=== PATIENT | male | born 1975 | race Caucasian/White ===

== ENCOUNTER 2021-02-09 08:56 | Inpatient (IN) | payer MEDICAID ==
[~2021-02-09] VITALS: Ht 160 cm; Wt 68.0 kg
[2021-02-09] MEDS ORDERED: MAGNESIUM/ALUMINUM HYDROXIDE/SIMETHICONE 30ML UDC PO ONE (09:45)
[2021-02-09] MEDS ORDERED: VISCOUS LIDOCAINE 2% 15 ML UDC PO ONE (09:45)
[2021-02-09 10:28] LABS: BASOPHILS % 0.6 % (0.0-2.0); EOSINOPHILS % 0.9 % (0.0-5.0); HEMATOCRIT. 48.9 % (42.0-52.0); HEMOGLOBIN. 16.7 g/dL (14.0-18.0); LYMPHOCYTES % 46.2 % (20.0-50.0); MEAN CORPUSCULAR HEMOGLOBIN 28.5 pg (28.0-32.0); MEAN CORPUSCULAR VOLUME 83.4 fL (80.0-94.0); MONOCYTES % 6.4 % (2.0-8.0); NEUTROPHILS % 45.9 % (40.0-76.0); PLATELET 321 x1000/uL (130-400); RED BLOOD CELL COUNT 5.87 mill/uL (4.7-6.1); RED CELL DISTRIBUTION WIDTH 13.3 % (11.6-14.6)
[2021-02-09 10:34] LABS: CHLORIDE 106 mEq/L (98-107)
[2021-02-09 10:37] LABS: ETHANOL BLOOD 254 mg/dL
[2021-02-09 10:39] LABS: PROTHROMBIN TIME 10.9 sec (9.6-11.0)
[2021-02-09] MEDS ORDERED: IOHEXOL-300 100 ML BOTTLE ONE (11:31)
[2021-02-09] MEDS ORDERED: MORPHINE SULFATE 4 MG/ML CPJ (NOT FOR IM USE) IV SCH (12:15)
[2021-02-09] MEDS ORDERED: SODIUM CHLORIDE 0.9% 1,000 ML IV ONE (12:30)
[2021-02-09] MEDS ORDERED: ONDANSETRON HCL 4MG/2ML INJ IV ONE (13:00)
[2021-02-09] MEDS ORDERED: CLONIDINE 0.1MG TABLET PO PRN (16:45)
[2021-02-09] MEDS ORDERED: DIPHENHYDRAMINE 50MG/ML VIAL IV PRN (16:45)
[2021-02-09] MEDS ORDERED: FOLIC ACID 1 MG, THIAMINE HCL 100 MG, MVI, ADULT NO.1 10 ML in DEXTROSE 5% WATER 1,000 ML IV ONE (16:45)
[2021-02-09] MEDS ORDERED: ONDANSETRON HCL 4MG/2ML INJ IV PRN (16:45)
[2021-02-09 20:00] VITALS: BP 148/83
[2021-02-09] MEDS ORDERED: DEXTROSE 50% WATER 50ML SYRINGE IV PRN (20:15)
[2021-02-09] MEDS: BLOOD SUGAR DIAGNOSTIC STRIP TEST SCH (20:58)
[2021-02-09] MEDS: INSULIN LISPRO 100 UNITS/ML SUBCUT SCH (21:00)
[2021-02-09] MEDS ORDERED: LORAZEPAM 2MG/ML CPJ IM PRN (22:45)
[2021-02-10] VITALS: BP 145/83
[2021-02-10 04:00] VITALS: BP 148/99
[2021-02-10] MEDS: SODIUM CHLORIDE 0.9% 1,000 ML IV SCH ×2 (05:13→19:32)
[2021-02-10] MEDS: CHLORDIAZEPOXIDE 25MG CAPSULE PO SCH ×3 (06:38→21:13)
[2021-02-10] MEDS: BLOOD SUGAR DIAGNOSTIC STRIP TEST SCH ×4 (06:38→21:12)
[2021-02-10] MEDS: INSULIN LISPRO 100 UNITS/ML SUBCUT SCH ×4 (06:50→21:00)
[2021-02-10 06:55] LABS: BASOPHILS % 0.3 % (0.0-2.0); EOSINOPHILS % 0.9 % (0.0-5.0); HEMATOCRIT. 44.5 % (42.0-52.0); LYMPHOCYTES % 28.9 % (20.0-50.0); MEAN CORPUSCULAR HEMOGLOBIN 28.4 pg (28.0-32.0); MEAN CORPUSCULAR VOLUME 84.2 fL (80.0-94.0); MONOCYTES % 9.2 % (2.0-8.0); NEUTROPHILS % 60.7 % (40.0-76.0); PLATELET 256 x1000/uL (130-400); RED BLOOD CELL COUNT 5.28 mill/uL (4.7-6.1); RED CELL DISTRIBUTION WIDTH 12.8 % (11.6-14.6)
[2021-02-10 07:06] LABS: CHLORIDE 105 mEq/L (98-107)
[2021-02-10 07:21] LABS: LDL CHOLESTEROL 88 mg/dL (5-100)
[2021-02-10 07:22] LABS: HDL CHOLESTEROL 39 mg/dL (40-59)
[2021-02-10 08:00] VITALS: BP 144/88
[2021-02-10] MEDS: MULTIVITAMINS,THER W-MINERALS TABLET PO SCH (08:49)
[2021-02-10] MEDS: PANTOPRAZOLE SODIUM 40 MG/VIAL IV SCH (08:49)
[2021-02-10] MEDS: FOLIC ACID 1MG TABLET PO SCH (08:49)
[2021-02-10] MEDS: THIAMINE HCL 100MG TABLET PO SCH (08:49)
[2021-02-10 10:29] LABS: TOTAL IRON BINDING CAPACITY 337 ug/dL (250-450)
[2021-02-10 11:00] LABS: VITAMIN B12 SERUM 421 pg/mL (211-911)
[2021-02-10 11:08] LABS: FOLIC ACID (FOLATE) SERUM > 20.00 ng/mL (>5.38)
[2021-02-10 12:00] VITALS: BP 151/89
[2021-02-10 12:12] LABS: FERRITIN 198 ng/mL (22-322)
[2021-02-10 16:00] VITALS: BP 149/90
[2021-02-10 20:00] VITALS: BP 147/81
[2021-02-10] MEDS ORDERED: ATORVASTATIN CALCIUM 40MG TABLET PO SCH (21:00)
[2021-02-11] VITALS: BP 144/74
[2021-02-11 04:00] VITALS: BP 120/86
[2021-02-11] MEDS: CHLORDIAZEPOXIDE 25MG CAPSULE PO SCH ×2 (06:25→14:50)
[2021-02-11] MEDS: BLOOD SUGAR DIAGNOSTIC STRIP TEST SCH ×2 (06:25→12:44)
[2021-02-11] MEDS: INSULIN LISPRO 100 UNITS/ML SUBCUT SCH ×2 (06:52→12:44)
[2021-02-11 08:00] VITALS: BP 126/77
[2021-02-11] MEDS: FOLIC ACID 1MG TABLET PO SCH (09:37)
[2021-02-11] MEDS: THIAMINE HCL 100MG TABLET PO SCH (09:37)
[2021-02-11] MEDS: MULTIVITAMINS,THER W-MINERALS TABLET PO SCH (09:37)
[2021-02-11] MEDS: PANTOPRAZOLE SODIUM 40 MG/VIAL IV SCH (09:37)
[2021-02-11] MEDS: SODIUM CHLORIDE 0.9% 1,000 ML IV SCH (09:41)
[2021-02-11 12:00] VITALS: BP 133/85
[2021-02-11] MEDS ORDERED: THIA100T88 MT (12:57)
[2021-02-11] MEDS ORDERED: LACT10SO7 MT (12:57)
[2021-02-11] MEDS ORDERED: ATOR40TA70 MT (12:57)
[2021-02-11] MEDS ORDERED: FAMO20TA8 MT (12:57)
[2021-02-11] MEDS ORDERED: L25 MT (12:57)
[2021-02-11] MEDS ORDERED: FOLI-43 MT (12:57)
[2021-02-11] MEDS ORDERED: MULT-230 MT (12:57)
[2021-02-11 14:36] VITALS: BP 133/85
[2021-02-11] MEDS ORDERED: LACTULOSE 20G/30ML UDC PO SCH (21:00)
== END 2021-02-11 15:45 | disposition home or self-care (01) | DRG 816 ==
LOC: ER 08:56 → 6EST 14:01 → ENRESERV 17:25 → CANRESERV 17:25 → ENRESERV 18:06
PROVIDERS: ADMIT Internal Medicine; ATTEND Internal Medicine
DX: T51.0X1A Toxic effect of ethanol, accidental (unintentional), initial encounter (principal); E87.2 Acidosis; K92.2 Gastrointestinal hemorrhage, unspecified; E78.1 Pure hyperglyceridemia; Y90.8 Blood alcohol level of 240 mg/100 ml or more; F10.129 Alcohol abuse with intoxication, unspecified; F10.139 Alcohol abuse with withdrawal, unspecified; Z71.41 Alcohol abuse counseling and surveillance of alcoholic; Y92.89 Other specified places as the place of occurrence of the external cause; E80.6 Other disorders of bilirubin metabolism; I10 Essential (primary) hypertension
CPT/HCPCS: 36415; 74177; 80053; 80061; 80076; 80320; 82140; 82270; 82607; 82728; 82746; 82962; 83036; 83540; 83550; 83605; 84443; 84484; 85025; 85044; 86850; 86900; 93005; 93970; 97161; 99285; C9113; J2270; J2405; J3411; J3490; J7030; J7070; Q9967; G0480

== ENCOUNTER 2022-08-09 17:47 | Inpatient (IN) | payer MEDICAID ==
[~2022-08-09] VITALS: Ht 182.9 cm; Wt 66.2 kg
[~2022-08-09 17:47] MED LIST: L25 MT; PANT40TA51 MT
[2022-08-09] MEDS ORDERED: FAMOTIDINE 20MG/2ML VIAL IV ONE (22:00)
[2022-08-09] MEDS ORDERED: ONDANSETRON HCL 4MG/2ML INJ IV ONE (22:00)
[2022-08-09] MEDS ORDERED: SODIUM CHLORIDE 0.9% 1,000 ML IV ONE (22:00)
[2022-08-09] MEDS ORDERED: MAGNESIUM/ALUMINUM HYDROXIDE/SIMETHICONE 30ML UDC PO ONE (23:00)
[2022-08-09 23:43] LABS: BASOPHILS % 0.3 % (0.0-2.0); EOSINOPHILS % 0.1 % (0.0-5.0); HEMATOCRIT. 44.6 % (42.0-52.0); HEMOGLOBIN. 15.3 g/dL (14.0-18.0); LYMPHOCYTES % 20.4 % (20.0-50.0); MEAN CORPUSCULAR HEMOGLOBIN 28.4 pg (28.0-32.0); MEAN CORPUSCULAR VOLUME 82.9 fL (80.0-94.0); MEAN PLATELET VOLUME 8.3 fl (7.4-10.4); MONOCYTES % 7.4 % (2.0-8.0); NEUTROPHILS % 71.8 % (40.0-76.0); PLATELET 252 x1000/uL (130-400); RED BLOOD CELL COUNT 5.38 mill/uL (4.7-6.1); RED CELL DISTRIBUTION WIDTH 13.5 % (11.6-14.6)
[2022-08-09 23:45] LABS: INR 1.1; PROTHROMBIN TIME 12.1 sec (9.6-11.0)
[2022-08-10] MEDS ORDERED: SODIUM CHLORIDE 0.9% 1,000 ML IV ONE
[2022-08-10] MEDS ORDERED: METOCLOPRAMIDE HCL 10MG/2ML VIAL IV NR
[2022-08-10 00:17] LABS: CHLORIDE 103 mEq/L (98-107)
[2022-08-10] MEDS ORDERED: ASPIRIN 81MG TABLET PO NR (01:00)
[2022-08-10 01:28] LABS: CHLORIDE 109 mEq/L (98-107)
[2022-08-10] MEDS ORDERED: MORPHINE SULFATE 2 MG/ML CPJ (NOT FOR IM USE) IV ONE (01:30)
[2022-08-10] MEDS ORDERED: CALCIUM GLUCONATE 100MG/ML 10ML VIAL IV NR (02:30)
[2022-08-10 04:58] LABS: CLARITY URINE CLEAR (CLEAR); COLOR URINE YELLOW (YELLOW); KETONES URINE 1+ (NEGATIVE); LEUKOCYTE ESTERASE URINE NEGATIVE (NEGATIVE); NITRITE URINE NEGATIVE (NEGATIVE); OCCULT BLOOD URINE NEGATIVE (NEGATIVE); PH URINE 6.5 (4.5-8.0); PROTEIN URINE 1+ (NEGATIVE); SPECIFIC GRAVITY URINE 1.022 (1.005-1.030); UROBILINOGEN URINE 0.2 E.U./dL (0.2-1.0)
[2022-08-10 05:37] VITALS: BP 155/86
[2022-08-10] MEDS ORDERED: CHLO25CA10 PO (06:07)
[2022-08-10 08:00] VITALS: BP 146/82
[2022-08-10] MEDS ORDERED: CLONIDINE 0.1MG TABLET PO PRN (09:30)
[2022-08-10] MEDS ORDERED: ONDANSETRON HCL 4MG/2ML INJ IV PRN (09:30)
[2022-08-10] MEDS ORDERED: ACETAMINOPHEN 325MG TABLET PO PRN (09:30)
[2022-08-10] MEDS ORDERED: IPRATROPIUM/ALBUTEROL 0.5-3(2.5)MG/3ML NEB HHN PRN (09:30)
[2022-08-10] MEDS ORDERED: DIPHENHYDRAMINE 50MG/ML VIAL IV PRN (09:30)
[2022-08-10] MEDS ORDERED: MVI, ADULT NO.1 10 ML, FOLIC ACID 1 MG, THIAMINE HCL 100 MG in SODIUM CHLORIDE 0.9% 1,0... IV SCH ×4 (10:00)
[2022-08-10 12:00] VITALS: BP 120/74
[2022-08-10] MEDS: CHLORDIAZEPOXIDE 25MG CAPSULE PO SCH ×2 (13:14→22:23)
[2022-08-10 16:00] VITALS: BP 155/67
[2022-08-10 20:00] VITALS: BP 138/96
[2022-08-10] MEDS ORDERED: PNEUMOCOCCAL 23-VAL P-SAC VAC 0.5 ML IM ONE (23:45)
[2022-08-10] MEDS ORDERED: INFLUENZA VACCINE 05/PF 0.5 ML SYRINGE IM ONE (23:45)
[2022-08-11] VITALS: BP 153/93
[2022-08-11 04:00] VITALS: BP 144/82
[2022-08-11] MEDS: CHLORDIAZEPOXIDE 25MG CAPSULE PO SCH ×2 (05:34→13:14)
[2022-08-11 07:33] LABS: BASOPHILS % 0.3 % (0.0-2.0); EOSINOPHILS % 3.1 % (0.0-5.0); HEMATOCRIT. 41.2 % (42.0-52.0); HEMOGLOBIN. 14.4 g/dL (14.0-18.0); LYMPHOCYTES % 28.4 % (20.0-50.0); MEAN CORPUSCULAR HEMOGLOBIN 28.6 pg (28.0-32.0); MEAN PLATELET VOLUME 8.2 fl (7.4-10.4); MONOCYTES % 9.2 % (2.0-8.0); PLATELET 165 x1000/uL (130-400); RED BLOOD CELL COUNT 5.02 mill/uL (4.7-6.1); RED CELL DISTRIBUTION WIDTH 13.5 % (11.6-14.6)
[2022-08-11 08:00] VITALS: BP 144/97
[2022-08-11 08:39] LABS: CHLORIDE 105 mEq/L (98-107)
[2022-08-11 12:00] VITALS: BP 141/103
== END 2022-08-11 15:30 | disposition home or self-care (01) | DRG 775 ==
LOC: ER 17:47 → MICUSO 08-10 01:13 → 8WST 08-10 08:48
PROVIDERS: ADMIT Internal Medicine; ATTEND Internal Medicine
DX: F10.229 Alcohol dependence with intoxication, unspecified (principal); I24.8 Other forms of acute ischemic heart disease; R65.10 Systemic inflammatory response syndrome (SIRS) of non-infectious origin without acute organ dysfunction; D72.829 Elevated white blood cell count, unspecified; R77.8 Other specified abnormalities of plasma proteins; R50.9 Fever, unspecified; Z20.822 Contact with and (suspected) exposure to COVID-19
CPT/HCPCS: 36415; 71045; 80053; 81003; 84484; 85025; 87426; 90686; 90732; 93005; 93970; 99285; J0610; J2270; J2405; J2765; J3411; J3490; J7030

== ENCOUNTER 2022-12-20 13:25 | Emergency (ER) | payer MEDICAID ==
[~2022-12-20] VITALS: Ht 162.6 cm; Wt 75.0 kg
[~2022-12-20 13:25] MED LIST changes: -L25 MT
[2022-12-20 15:14] LABS: BASOPHILS % 0.4 % (0.0-2.0); EOSINOPHILS % 1.1 % (0.0-5.0); HEMATOCRIT. 43.3 % (42.0-52.0); LYMPHOCYTES % 34.5 % (20.0-50.0); MEAN CORPUSCULAR VOLUME 80.9 fL (80.0-94.0); MEAN PLATELET VOLUME 7.8 fl (7.4-10.4); MONOCYTES % 5.9 % (2.0-8.0); NEUTROPHILS % 58.1 % (40.0-76.0); PLATELET 252 x1000/uL (130-400); RED BLOOD CELL COUNT 5.36 mill/uL (4.7-6.1)
[2022-12-20 15:18] LABS: CHLORIDE 104 mEq/L (98-107)
[2022-12-20 15:28] LABS: ETHANOL BLOOD 253 mg/dL
[2022-12-20] MEDS ORDERED: KETOROLAC 60MG/2ML VIAL IM ONE (20:30)
[2022-12-20 20:50] VITALS: BP 137/78
== END 2022-12-20 20:50 | disposition home or self-care (01) ==
LOC: ER 13:38
DX: R11.2 Nausea with vomiting, unspecified (principal)
CPT/HCPCS: 36415; 76705; 80053; 80320; 83690; 85025; 96372; 99285; J1885; Z7610; G0480

== ENCOUNTER 2023-04-24 13:03 | Emergency (ER) | payer MEDICAID, OTHER ==
[~2023-04-24] VITALS: Ht 162.6 cm; Wt 66.0 kg
[2023-04-24 14:04] VITALS: BP 157/106; PULSE 83; RESP 17; TEMP 98.2; O2SAT 96
[2023-04-24 15:56] LABS: BASOPHILS % 0.6 % (0.0-2.0); DIFFERENTIAL COMMENT 0; EOSINOPHILS % 2.2 % (0.0-5.0); HEMATOCRIT. 46.4 % (42.0-52.0); HEMOGLOBIN. 16.2 g/dL (14.0-18.0); LYMPHOCYTES % 50.5 % (20.0-50.0); MEAN CORPUSCULAR HEMOGLOBIN 27.7 pg (28.0-32.0); MEAN CORPUSCULAR HGB CONC 34.9 g/dL (31.0-37.0); MEAN CORPUSCULAR VOLUME 79.3 fL (80.0-94.0); MEAN PLATELET VOLUME 7.7 fl (7.4-10.4); MONOCYTES % 7.8 % (2.0-8.0); NEUTROPHILS % 38.9 % (40.0-76.0); PLATELET 260 x1000/uL (130-400); RED BLOOD CELL COUNT 5.85 mill/uL (4.7-6.1); RED CELL DISTRIBUTION WIDTH 13.2 % (11.6-14.6); WHITE BLOOD COUNT 5.7 x1000/uL (4.5-11.0)
[2023-04-24 16:03] LABS: CHLORIDE 99 mEq/L (98-107); INDEX HEMOLYSI 2 (1-3); INDEX ICTERIC 1 (1-4); INDEX LIPEMIC 1 (1-3); POTASSIUM 3.7 mEq/L (3.5-5.1); SODIUM 135 mEq/L (136-145)
[2023-04-24 16:12] LABS: ALANINE AMINOTRANSFERASE 47 IU/L (13-61); ASPARTATE AMINOTRANSFERASE 33 IU/L (15-37); BILIRUBIN TOTAL 0.6 mg/dL (0.1-1.0); CALCIUM 8.5 mg/dL (8.5-10.1); CARBON DIOXIDE 23 mEq/L (21-32); CREATININE 0.7 mg/dL (0.6-1.3); ETHANOL BLOOD 209 mg/dL (-10); GLUCOSE 304 mg/dL (70-105); PROTEIN TOTAL 8.1 g/dL (6.0-8.3); UREA NITROGEN BLOOD 11 mg/dL (7-21)
[2023-04-24] MEDS ORDERED: CHLORDIAZEPOXIDE 25MG CAPSULE PO ONE (17:00)
[2023-04-24] MEDS ORDERED: ONDANSETRON 4MG ODT PO ONE (17:00)
== END 2023-04-24 16:59 | disposition left against medical advice (07) ==
LOC: ER 13:03
DX: F10.129 Alcohol abuse with intoxication, unspecified (principal); Y90.7 Blood alcohol level of 200-239 mg/100 ml; R53.1 Weakness; R42 Dizziness and giddiness
CPT/HCPCS: 36415; 80053; 80320; 85025; 99283; G0480

== ENCOUNTER 2023-06-05 11:35 | Emergency (ER) | payer OTHER ==
[~2023-06-05] VITALS: Ht 162.6 cm; Wt 76.2 kg
[2023-06-05 11:43] VITALS: TEMP 98.7; O2SAT 98
[2023-06-05 12:03] LABS: HEMATOCRIT. 46.9 % (42.0-52.0); HEMOGLOBIN. 16.4 g/dL (14.0-18.0); MEAN CORPUSCULAR HEMOGLOBIN 27.8 pg (28.0-32.0); MEAN CORPUSCULAR HGB CONC 34.9 g/dL (31.0-37.0); MEAN CORPUSCULAR VOLUME 79.4 fL (80.0-94.0); MEAN PLATELET VOLUME 7.4 fl (7.4-10.4); PLATELET 313 x1000/uL (130-400); RED CELL DISTRIBUTION WIDTH 14.5 % (11.6-14.6)
[2023-06-05 12:13] LABS: CHLORIDE 106 mEq/L (98-107); INDEX HEMOLYSI 1 (1-3); INDEX ICTERIC 1 (1-4); INDEX LIPEMIC 1 (1-3); POTASSIUM 3.7 mEq/L (3.5-5.1); SODIUM 140 mEq/L (136-145)
[2023-06-05 12:17] LABS: DIFFERENTIAL COMMENT 1
[2023-06-05 12:25] LABS: ALANINE AMINOTRANSFERASE 57 IU/L (13-61); ASPARTATE AMINOTRANSFERASE 35 IU/L (15-37); BILIRUBIN TOTAL 0.6 mg/dL (0.1-1.0); CALCIUM 8.5 mg/dL (8.5-10.1); CARBON DIOXIDE 27 mEq/L (21-32); CREATININE 0.7 mg/dL (0.6-1.3); GLUCOSE 215 mg/dL (70-105); PROTEIN TOTAL 8.1 g/dL (6.0-8.3); UREA NITROGEN BLOOD 6 mg/dL (7-21)
[2023-06-05 12:31] LABS: TROPONIN I HIGH SENSITIVITY 95 ng/L (<78)
[2023-06-05 13:45] LABS: PLATELET ESTIMATE NORMAL
[2023-06-05 13:46] LABS: MICROCYTOSIS 1+
[2023-06-05] MEDS ORDERED: ONDANSETRON HCL 4MG/2ML INJ IV ONE (14:45)
[2023-06-05] MEDS ORDERED: ASPIRIN 325MG EC TABLET PO ONE (14:45)
[2023-06-05] MEDS ORDERED: SODIUM CHLORIDE 0.9% 1,000 ML IV ONE (14:45)
[2023-06-05 15:40] VITALS: BP 137/98; PULSE 77; RESP 20
[2023-06-05 16:15] LABS: CLARITY URINE CLEAR (CLEAR); COLOR URINE YELLOW (YELLOW); GLUCOSE URINE 1+ (NEGATIVE); KETONES URINE NEGATIVE (NEGATIVE); LEUKOCYTE ESTERASE URINE NEGATIVE (NEGATIVE); NITRITE URINE NEGATIVE (NEGATIVE); OCCULT BLOOD URINE NEGATIVE (NEGATIVE); PH URINE 7.5 (4.5-8.0); PROTEIN URINE NEGATIVE (NEGATIVE); SPECIFIC GRAVITY URINE 1.007 (1.005-1.030)
[2023-06-05 17:18] LABS: BACTERIA URINE TRACE; RBC URINE NONE SEEN /hpf (0-2); SQUAMOUS EPITHELIAL CELL URINE RARE /lpf (RARE/1+); WBC URINE NONE SEEN /hpf (0-2)
== END 2023-06-05 15:45 | disposition left against medical advice (07) ==
LOC: ER 11:35 → CANBEDREQ 15:47
DX: R10.13 Epigastric pain (principal); I21.3 ST elevation (STEMI) myocardial infarction of unspecified site
CPT/HCPCS: 80053; 81003; 83690; 85025; 84484; 36415; 93005; 99284; J2405; J7030; Z7610

== ENCOUNTER 2023-10-30 13:34 | Emergency (ER) | payer MEDICAID, OTHER ==
[~2023-10-30] VITALS: Ht 165.1 cm; Wt 81.6 kg
[2023-10-30 13:59] VITALS: TEMP 98.1; O2SAT 97
[2023-10-30 15:40] LABS: BASOPHILS % 0.5 % (0.0-2.0); EOSINOPHILS % 0.4 % (0.0-5.0); HEMATOCRIT. 50.2 % (42.0-52.0); LYMPHOCYTES % 37.3 % (20.0-50.0); MEAN CORPUSCULAR HEMOGLOBIN 27.8 pg (28.0-32.0); MEAN CORPUSCULAR HGB CONC 33.8 g/dL (31.0-37.0); MEAN CORPUSCULAR VOLUME 82.1 fL (80.0-94.0); MEAN PLATELET VOLUME 8.1 fl (7.4-10.4); MONOCYTES % 8.8 % (2.0-8.0); PLATELET 295 x1000/uL (130-400); RED BLOOD CELL COUNT 6.11 mill/uL (4.7-6.1); RED CELL DISTRIBUTION WIDTH 13.4 % (11.6-14.6); WHITE BLOOD COUNT 8.4 x1000/uL (4.5-11.0)
[2023-10-30 15:51] LABS: ALANINE AMINOTRANSFERASE 41 IU/L (10-49); ALBUMIN 4.8 g/dL (3.2-4.8); ASPARTATE AMINOTRANSFERASE 38 IU/L (<34); BILIRUBIN TOTAL 0.8 mg/dL (0.1-1.0); CALCIUM 9.2 mg/dL (8.7-10.4); CARBON DIOXIDE 22 mEq/L (21-32); CHLORIDE 100 mEq/L (98-107); GLUCOSE 280 mg/dL (70-105); POTASSIUM 3.9 mEq/L (3.5-5.1); PROTEIN TOTAL 8.6 g/dL (6.0-8.3); SODIUM 137 mEq/L (136-145); UREA NITROGEN BLOOD 7 mg/dL (9-23)
[2023-10-30 16:34] LABS: CLARITY URINE CLEAR (CLEAR); COLOR URINE YELLOW (YELLOW); GLUCOSE URINE 3+ (NEGATIVE); KETONES URINE 1+ (NEGATIVE); LEUKOCYTE ESTERASE URINE NEGATIVE (NEGATIVE); NITRITE URINE NEGATIVE (NEGATIVE); OCCULT BLOOD URINE 1+ (NEGATIVE); PH URINE 5.5 (4.5-8.0); PROTEIN URINE 3+ (NEGATIVE); SPECIFIC GRAVITY URINE 1.027 (1.005-1.030); UROBILINOGEN URINE 0.2 E.U./dL (0.2-1.0)
[2023-10-30 18:11] LABS: BACTERIA URINE NONE SEEN; RBC URINE 0-2 /hpf (0-2); SQUAMOUS EPITHELIAL CELL URINE NONE SEEN /lpf (RARE/1+); WBC URINE NONE SEEN /hpf (0-2)
[2023-10-30] MEDS ORDERED: PROT40 MT (19:55)
[2023-10-30] MEDS ORDERED: ONDA4TAB11 PO (19:55)
[2023-10-30] MEDS: HYDROCODONE/ACETAMINOPHEN 5/325MG TABLET PO NR (20:21)
[2023-10-30] MEDS: FAMOTIDINE 20MG TABLET PO NR (20:22)
[2023-10-30] MEDS: ONDANSETRON 4MG ODT PO NR (20:22)
[2023-10-30 20:23] VITALS: BP 149/91; PULSE 104; RESP 16
== END 2023-10-30 20:24 | disposition home or self-care (01) ==
LOC: ER 13:34
DX: K29.20 Alcoholic gastritis without bleeding (principal); I10 Essential (primary) hypertension
CPT/HCPCS: 99284; 74176; 80053; 81003; 83690; 85025; 36415; Q0162